=== PATIENT | female | born 1965 | race Two or more races ===

== ENCOUNTER → 2020-10-11 | Emergency (ER) | payer OTHER ==
[~2020-10-11] VITALS: Ht 162.6 cm; Wt 72.6 kg
[~2020-10-11] MED LIST: ATIVAN0.5 M1 PO; NASAL MIST126 ML
== END | disposition home or self-care (01) ==
LOC: ER 15:32
DX: R06.02 Shortness of breath (principal); R50.9 Fever, unspecified; Z03.818 Encounter for observation for suspected exposure to other biological agents ruled out